=== PATIENT | male | born 1970 | race Caucasian/White ===

== ENCOUNTER 2019-12-18 19:01 | Emergency (ER) | payer SELFPAY ==
[2019-12-18 19:32] LABS: Basophils % 0.4 %; Eosinophils # 0.2 10^3/uL (0.0-0.8); Eosinophils % 1.5 %; Hemoglobin 14.5 g/dL (11.7-16.6); Lymphocytes # 2.6 10^3/uL (0.8-4.8); Lymphocytes % 24.5 %; Mean Corpuscular HGB Conc 32.2 g/dL (30.0-36.0); Mean Corpuscular Hemoglobin 27.3 pg (28.0-34.0); Mean Corpuscular Volume 84.6 fL (80-94); Mean Platelet Volume 11.3 fL (7.4-10.4); Monocytes % 9.4 %; Neutrophils # 6.7 10^3/uL (1.8-7.7); Neutrophils % 63.8 %; Nucleated Red Blood Cells % 0 %; Platelet Count 241 10^3/cmm (130-400); Red Blood Count 5.32 10^6/uL (4.1-5.3); Red Cell Distribution Width 13.1 % (12.1-15.1); White Blood Count 10.5 10^3/uL (4.0-10.0)
[2019-12-18 19:45] VITALS: BP 144/82; PULSE 72; RESP 18; TEMP 37; O2SAT 94; BMI 36.8
[2019-12-18 19:47] LABS: Alanine Aminotransferase 46 U/L (0-41); Albumin Level 4.2 g/dL (3.5-5.2); Alkaline Phosphatase 77 IU/L (40-130); Anion Gap 16.7 (5-19); Aspartate Amino Transferase 34 U/L (0-40); Blood Urea Nitrogen 17 mg/dL (6-20); Calcium 10.1 mg/dL (8.5-10.5); Carbon Dioxide 25 mmol/L (22-29); Chloride 98 mmol/L (98-107); Globulin 3.4 g/dL (1.3-4.6); Glucose 142 mg/dL (65-115); Lipase 35 U/L (13-60); Potassium 3.7 mmol/L (3.5-5.1); Sodium 136 mmol/L (136-145); Total Bilirubin 0.6 mg/dL (0.15-1.2); Total Protein 7.6 g/dL (6.6-8.7)
--- NOTE | 2019-12-18 20:08 | ED_ITS ---
Entered by Tiffany Nesbitt, acting as scribe for Jo-Ann Patel MD Dec 18, 2019 19:01 HPI - Abdominal Pain General: Chief Complaint: Abdominal Pain Stated Complaint: ABD PAIN Time Seen by Provider: 12/18/19 20:01 Source: patient and family Mode of arrival: ambulatory History of Present Illness: HPI narrative: 49 y/o male presents to the ED with complaint of abd pain. Pt states he has pain in the RUQ and nausea. He has noticed increased abd distension. Pt denies any prior abd sx. MD elicited complaint: abdominal pain Pain Consistency: constant Location: RUQ Exacerbating factors: eating and movement Associated Symptoms: Reports bloating and nausea; Denies chills, diarrhea, dysuria, fever(s) and vomiting Review of Systems Const: Denies: fever, chills or body aches Eyes: Denies: blurry vision or eye discomfort ENMT: Denies: throat pain or dental pain Card: Denies: chest pain Resp: Denies: shortness of breath GI: Reports: abdominal pain, nausea and bloating; Denies: vomiting or diarrhea : Denies: painful urination Musc: Denies: neck pain or back pain Skin/Breast: Denies: rash Neuro: Denies: headache Psych: Denies: depression Shashank/Lymph: Denies: easy bruising All/Imm: Denies: hives PFSH ED PFSH: Statuses (acute, chronic, etc) shown below reflect problem list status as previously entered and may not be historically accurate Social History Smoking and tobacco status: never smoked Physical Exam 2 Const: COMMON NORMALS: no apparent distress and oriented x3 GENERAL APPEARANCE: cooperative NUTRITIONAL APPEARANCE: obese HENMT: COMMON NORMALS: normocephalic and head/scalp atraumatic HEAD & SCALP: normocephalic and atraumatic Eye: COMMON NORMALS: PERRL and EOMs intact bilaterally PUPIL: Yes PERRL Neck/C-Spine: COMMON NORMALS: full ROM and supple Chest: COMMONS NORMALS: inspection of chest normal and palpation of chest normal Resp: COMMON NORMALS: normal respiratory effort, no retractions, no use of accessory muscles and clear to auscultation bilaterally AUSCULTATION: clear to auscultation bilaterally Cardio: COMMON NORMALS: regular rate, regular rhythm and no murmurs RATE: regular rate RHYTHM: regular rhythm GI: COMMON NORMALS: no masses PALPATION: Yes tender Details: RUQ Extremity: COMMON NORMALS: normal to inspection and full ROM Neuro: COMMON NORMALS: oriented x3, moves all extremities and no focal motor deficits Psych: COMMON NORMALS: mental status grossly normal, thought process normal and cooperative THOUGHT PROCESS: normal thought process Skin: COMMON NORMALS: no rashes or lesions noted and no wounds GENERAL SKIN EXAM: no rashes or lesions noted Course Vital Signs: Vital signs: Vital Signs Temperature 98.6 F 12/18/19 19:45 Pulse Rate 65 12/18/19 21:54 Respiratory Rate 16 12/18/19 21:54 Blood Pressure 117/56 12/18/19 21:54 Pulse Oximetry 94 12/18/19 21:54 MDM - Abdominal Pain MDM Narrative: Medical decision making narrative: Patient presents here with abdominal pain. Patient's ultrasound here shows no signs of cholecystitis or gallstones. Patient's lab work is normal as well. Will straight patient on omeprazole and she is to follow-up with a surgeon as soon as possible. Patient is to return if worsening. Lab Data: Labs: Lab Results 12/18/19 12/18/19 Range/Units 19:22 19:22 WBC 10.5 H (4.0-10.0) 10^3/ uL RBC 5.32 H (4.1-5.3) 10^6/u L Hgb 14.5 (11.7-16.6) g/dL Hct 45.0 (42.0-52.0) % MCV 84.6 (80-94) fL MCH 27.3 L (28.0-34.0) pg MCHC 32.2 (30.0-36.0) g/dL RDW 13.1 (12.1-15.1) % Plt Count 241 (130-400) 10^3/c mm MPV 11.3 H (7.4-10.4) fL Neut % (Auto) 63.8 % Lymph % (Auto) 24.5 % Coos % (Auto) 9.4 % Eos % (Auto) 1.5 % Baso % (Auto) 0.4 % Neut # (Auto) 6.7 (1.8-7.7) 10^3/u L Lymph # (Auto) 2.6 (0.8-4.8) 10^3/u L Coos # (Auto) 1.0 H (0.2-0.9) 10^3/u L Eos # (Auto) 0.2 (0.0-0.8) 10^3/u L Baso # (Auto) 0.0 (0.0-0.1) 10^3/u L Nucleated RBC % (a uto) 0 % Nucleated RBCs # 0.0 /100WBC Sodium 136 (136-145) mmol/L Potassium 3.7 (3.5-5.1) mmol/L Chloride 98 (98-107) mmol/L Carbon Dioxide 25 (22-29) mmol/L Anion Gap 16.7 (5-19) BUN 17 (6-20) mg/dL Creatinine 0.9 (0.7-1.2) mg/dL GFR Calculation 89.0 L (90-130) mL/min Glucose 142 H (65-115) mg/dL Calcium 10.1 (8.5-10.5) mg/dL Total Bilirubin 0.6 (0.15-1.2) mg/dL AST 34 (0-40) U/L ALT 46 H (0-41) U/L Alkaline Phosphata se 77 (40-130) IU/L Total Protein 7.6 (6.6-8.7) g/dL Albumin 4.2 (3.5-5.2) g/dL Globulin 3.4 (1.3-4.6) g/dL Lipase 35 (13-60) U/L Imaging Data ^: US: My impression: no acute abnormality Discharge Plan Discharge Patient Disposition: Home, Self-Care Clinical Impression: Abdominal pain Qualifiers: Abdominal location: right upper quadrant Qualified Code(s): R10.11 - Right upper quadrant pain Condition: Stable Prescriptions: New Prilosec OTC 20 mg tablet,delayed release (DR/EC) 20 mg PO DAILY 42 Days RF: 0 No Action Tenormin 100 mg tablet 100 mg PO DAILY RF: 0 Glucotrol 10 mg tablet 10 mg PO BID RF: 0 Glucophage 1,000 mg tablet 1,000 mg PO BID RF: 0 captopril 50 mg tablet 50 mg PO DAILY RF: 0 terazosin 10 mg capsule 10 mg PO DAILY RF: 0 Discharge Orders: Discharge Order (Routine); Ordered 12/18/19 Ordered By: Jo-Ann Patel Referrals: Santos Ochoa MD [Physician] - 4-7 days Discharge Diet: Advance as tolerated Discharge Activity: Resume usual activity Patient Instructions: Abdominal Pain (ED) Discharge Date/Time: 12/18/19 21:55 Coding Level of Care Code ED [employer] Manager for Chg Fwd Exam Problem Focused The documentation recorded by the Laz carrera Ashley, accurately reflects the service I personally performed and the decisions made by Amanda baum Korby, MD Dec 18, 2019 19:01
--- NOTE | 2019-12-18 20:10 | US_ITS ---
WS: [id number] RIGHT UPPER QUADRANT ULTRASOUND HISTORY: abd pain COMPARISON: None available. Liver: 15.3 cm in length. Poor visualization of the liver due to hepatic steatosis. Portal veins are poorly visualized. No mass is identified. No bile duct dilatation. Gallbladder: Normally distended gallbladder with no stones or wall thickening. CBD: 6.0 mm Pancreas: Not visualized. Completely obscured by bowel gas. Right kidney: 12.6 cm in length. Normal echogenicity with no mass or hydronephrosis. Aorta and IVC: Not visualized. No ascites. US/US gall bladder [id number] IMPRESSION: 1. Limited evaluation of the RIGHT upper quadrant. 2. Normal gallbladder. 3. Hepatic steatosis. Limited visualization of the liver.
[2019-12-18] MEDS: morphine 4 mg/mL SDV 1 mL IVP ×2 (20:17→21:50)
[2019-12-18] MEDS: ondansetron 2 mg/ML SDV 2 mL 4 MG IVP (20:18)
[2019-12-18 20:19] VITALS: BP 147/78; PULSE 80; RESP 18; O2SAT 94
--- NOTE | 2019-12-18 20:21 | PC.NURSE ---
Addendum entered by Cedric Bourgeois 12/18/19 20:25: Pt states that pain is worse after eating. Original Note: Introduced self to patient and initiated vital signs. Pt is A&O x 4 and agreeable. Pt states that the reason for the ER visit today is due to abdominal pain which presented approximately 2 days ago but has progressed. Pt states that pain is increased when taking a deep breath and is on the lower right quadrant of abdomen. Reassured patient of needs and will continue to monitor. Awaiting provider at bedside.
--- NOTE | 2019-12-18 21:22 | PC.NURSE ---
Ultrasound in room.
[2019-12-18 21:50] VITALS: RESP 16; O2SAT 94
[2019-12-18 21:54] VITALS: BP 117/56; PULSE 65; RESP 16; O2SAT 94
--- NOTE | 2019-12-23 14:43 | DCPLANNER ---
therapy manager had message to schedule a follow up appointment for patient with Dr. Ochoa. therapy manager called patient to speak -with patient about follow up appointment. therapy manager called [phone] unable to speak with patient or leave a voicemail, phone is no longer in service.
== END 2019-12-18 21:55 | disposition home or self-care (01) ==
PROVIDERS: Emergency Provider Emergency Medicine
DX: R10.11 Right upper quadrant pain (principal); Z79.84 Long term (current) use of oral hypoglycemic drugs
CPT/HCPCS: 36415; 76705; 80053; 83690; 85025; 96374; 96375; 96376; 99282; J2270; J2405

== ENCOUNTER → 2023-09-12 15:21 | Outpatient (BNVA) | payer OTHER, SELFPAY | PROVIDERS: Visit Provider Podiatrist Foot & Ankle Surgery | DX: M77.42 Metatarsalgia, left foot; M19.072 Primary osteoarthritis, left ankle and foot | CPT/HCPCS: 73630 ==

== ENCOUNTER 2024-10-29 07:29 | Emergency (ER) | payer OTHER, SELFPAY ==
[2024-10-29 07:30] VITALS: BP 141/84; PULSE 83; RESP 22; TEMP 36.7; O2SAT 95
--- NOTE | 2024-10-29 07:36 | XR_ITS ---
WS: [id number] Left hip, 3 views, 10/29/2024 Clinical Data: Trauma Comparison: None. Findings: No fractures or dislocations are seen. The hip joint is intact. There is a soft tissue calcification adjacent to the left inferior ischial pubic ramus which may be from a prior injury. The adjacent pelv is is normal. XR/XR hip LT 2-3V wo/w pel* [id number] Impression: Negative left hip. Tonnis classification: grade 0: normal radiographs
[2024-10-29 07:37] VITALS: BP 141/84; PULSE 84; O2SAT 96
--- NOTE | 2024-10-29 07:39 | ED_ITS ---
HPI - Extremity Problem General: Chief complaint: Extremity Injury, Lower Stated complaint: Fall, LT Leg pain Time Seen by Provider: 10/29/24 07:35 History of Present Illness: 54-year-old male presents to the emergen cy room with left hip pain. Patient was at work he slipped on a floor describes having done kind of split. He is complaining of right hip pain and discomfort but he can spontaneously move the right hip. He was not able to stand afterwards he is brought in by ambulance. Did not strike his head did not lose consciousness. No previous injury to that hip. He has had previous left knee surgery. Associated symptoms: Deny chest pain, fever(s) or rash Related Data Home Medications Medication Instructions Recorded Confirmed atenolol 100 mg tablet (Tenormin) 100 mg PO DAILY 12/18/19 10/29/24 captopril 50 mg tablet 50 mg PO DAILY 12/18/19 10/29/24 terazosin 10 mg capsule 10 mg PO DAILY 12/18/19 10/29/24 aspirin 81 mg tablet,delayed 81 mg PO BID 10/29/24 10/29/24 release (Edgar Low Dose Aspirin) glipizide 10 mg tablet, extended 10 mg PO QAM 10/29/24 10/29/24 release 24 hr metformin 1,000 mg tablet 1,000 mg PO BIDWM 10/29/24 10/29/24 omeprazole 20 mg capsule,delayed 20 mg PO DAILY 10/29/24 10/29/24 release semaglutide 2 mg/dose (8 mg/3 mL) See Rx Instructions .Route .COMPLEX 10/29/24 10/29/24 subcutaneous pen injector (Ozempic) Previous Rx's Medication Instructions Recorded custom orthotics L3020 #1 ea 09/12/23 diclofenac sodium 75 mg 75 mg PO Q12H PRN pain #20 tabs 10/29/24 tablet,delayed release methylprednisolone 4 mg tablets in See Rx Instructions PO .COMPLEX 10/29/24 a dose pack (Medrol (Gorge)) #21 ea tizanidine 4 mg tablet 4 mg PO Q6H PRN muscle spasticity 10/29/24 #20 tabs Allergies Allergy/AdvReac Type Severity Reaction Status Date / Time No Known Allergies Allergy Verified 09/12/23 15:08 Review of Systems Const: Denies: fever(s) or chills Card: Denies: chest pain Resp: Denies: dyspnea GI: Denies: abdominal pain : Denies: dysuria, urinary frequency or urinary urgency Musc: Reports: joint pain; Denies: neck pain or back pain Skin/Breast: Denies: rash PFSH ED PFSH: Medical History Essential hypertension Diabetes Family History Other Cancer Diabetes Hypertension Social History Smoking and tobacco/nicotine status: former use of tobacco/nicotine Physical Exam Const: GENERAL APPEARANCE: cooperative ORIENTATION/CONSCIOUSNESS: Yes awake, Yes oriented to person, Yes oriented to place and Yes oriented to time HENMT: COMMON NORMALS: normocephalic, atraumatic and hearing grossly normal bilaterally HEAD & SCALP: normocephalic and atraumatic Resp: COMMON NORMALS: normal respiratory effort, No retractions, No use of accessory muscles and clear to auscultation bilaterally AUSCULTATION: clear to auscultation bilaterally Cardio: COMMON NORMALS: regular rate, regular rhythm and No murmurs present (Cardio) RATE: regular rate RHYTHM: regular rhythm GI: COMMON NORMALS: Soft to palpation and No hepatosplenomegaly present AUSCULTATION: Yes normoactive bowel sounds PALPATION: Yes Soft to palpation, No Tenderness to palpation present (GI), No Guarding due to palpation present (GI) and Yes No hepatosplenomegaly present Extremity: COMMON NORMALS: normal to inspection, capillary refill normal, no clubbing, cyanosis or edema, no calf tenderness and no pedal edema Neuro: SENSORIUM/ORIENTATION: Yes oriented to person, Yes oriented to place and Yes oriented to time Skin: COMMON NORMALS: no rashes or lesions noted GENERAL SKIN EXAM: no rashes or lesions noted Course Vital Signs: Vital signs: Vital Signs Temperature 98.1 F 10/29/24 07:30 Pulse Rate 73 10/29/24 10:37 Respiratory Rate 22 H 10/29/24 07:30 Blood Pressure 141/84 10/29/24 10:37 Pulse Oximetry 93 10/29/24 10:37 Oxygen Delivery Me thod Room Air 10/29/24 07:30 MDM - Extremity (Nontraumatic) Medical Decision Making No fractures on x-ray patient able to ambulate he is somewhat sore. Suspect this mostly soft tissue. Will discharge patient home steroid taper and tizanidine diclofenac and follow-up with primary care if not improving Lab Data Radiology Impressions Hip/Pelvis X-Ray 10/29/24 07:36 Impression: Negative left hip. Tonnis classification: grade 0: normal radiographs All radiology interpretation(s) finalized by discharge Discharge Plan Discharge Patient Disposition: Home Clinical Impression: Fall, Acute pain of left hip Condition: Stable Prescriptions: New tizanidine 4 mg tablet 4 mg PO Q6H PRN (Reason: muscle spasticity) Qty: 20 0RF Rx Instructions: do not exceed 3 doses per 24 hrs diclofenac sodium 75 mg tablet,delayed release (DR/EC) 75 mg PO Q12H PRN (Reason: pain) Qty: 20 0RF methylprednisolone [Medrol (Gorge)] 4 mg tablets,dose pack See Rx Instructions .ROUTE .COMPLEX Qty: 21 0RF Rx Instructions: orally per package directions No Action (DME) custom orthotics L3020 See Rx Instructions .Route .MEDSUPPLY Qty: 1 0RF Rx Instructions: As directed to the Josselyn Arcelia atenolol [Tenormin] 100 mg tablet 100 mg PO DAILY captopril 50 mg tablet 50 mg PO DAILY terazosin 10 mg capsule 10 mg PO DAILY glipizide 10 mg tablet extended release 24hr 10 mg PO QAM aspirin [Edgar Low Dose Aspirin] 81 mg Tablet,Delayed Release (Dr/Ec) 81 mg PO BID metformin 1,000 mg tablet 1,000 mg PO BIDWM omeprazole 20 mg capsule,delayed release(DR/EC) 20 mg PO DAILY Ozempic 2 mg/dose (8 mg/3 mL) pen injector See Rx Instructions .ROUTE .COMPLEX Rx Instructions: INJECT 2 MG BY SUBCUTANEOUS INJECTION EVERY 7 DAYS. DOSE INCREASE. REPLACES PRIOR RX Discharge Orders: Discharge ED (Routine); Ordered 10/29/24 Ordered By: Ubaldo Patel Discharge Diet: Usual diet Discharge Activity: Resume usual activity Patient Instructions: Opioid Safety, Pain Management Activity Restrictions/Additional Instructions: Thank you for choosing [facility] for your healthcare needs today. It is very important that you follow up as instructed or that you return to the Emergency Department should you have concerns or if your condition changes or worsens in any way. You are seen emergency room after a fall. X-ray does not show any acute fractures you will ambulate well. Will discharge home with prednisone taper diclofenac as an anti-inflammatory and tizanidine. Take the prednisone as prescribed use the diclofenac and tizanidine as needed. Recheck with your primary care doctor if not improving. He will likely be very sore over the next couple of days. Coding Level of Care Code ED [employer] for Nuris Kraft
[2024-10-29] MEDS: orphenadrine 30 mg/mL Inj 2 mL 60 MG IVP (07:46)
[2024-10-29] MEDS: ketorolac 30 mg/mL INJ IVP (07:46)
[2024-10-29 10:37] VITALS: BP 141/84; PULSE 73; O2SAT 93
== END 2024-10-29 10:38 | disposition home or self-care (01) ==
PROVIDERS: Emergency Provider Family Medicine
DX: M25.552 Pain in left hip (principal); Z79.82 Long term (current) use of aspirin; Z79.84 Long term (current) use of oral hypoglycemic drugs; Z87.891 Personal history of nicotine dependence; I10 Essential (primary) hypertension; E11.9 Type 2 diabetes mellitus without complications; W01.0XXA Fall on same level from slipping, tripping and stumbling without subsequent striking against object, initial encounter
CPT/HCPCS: 73502; 96374; 96375; 99284; J1885; J2360

== ENCOUNTER 2025-05-23 08:11 | Emergency (ER) | payer BC, SELFPAY ==
--- OUTSIDE RECORDS SUMMARY | 2025-05-23 08:19 | XMS_ITS | Clinical Summary ---
Author Organization [facility] Address [address] [place] [address] Care Team Providers Care Green Jobs Trainer Name Role Phone Celestino Alas MD Primary Care Provider [phone] [phone] Allergies No known active allergies Medications furosemide (LASIX) 20 mg Oral tablet Take 10 mg by mouth 1 time daily as needed . Active fluticasone (FLONASE) 50 mcg/spray [place], Suspension Administer 2 Sprays in each nostril daily. Active albuterol HFA 90 mcg inhaler Take 2 Puffs by inhalation every 6 hours as needed for Shortness of Breath. 6.7 Gram 2 8 Active glipiZIDE (GLUCOTROL) 10 mg tablet Take 2 Tablets (20 mg) by mouth 2 times daily with meals. 360 Tablet 4 1 Active pioglitazone (Actos) 15 mg tablet Take 1 Tablet (15 mg) by mouth daily with breakfast. 90 Tablet 4 1 Active aspirin (ECOTRIN EC) 81 mg Tablet, Delayed Release (E.C.) Take 81 mg by mouth daily. 0 Active tiZANidine (ZANAFLEX) 2 mg TabletIndicatio ns:Myalgia Take 1 Tablet (2 mg) by mouth nightly as needed for Spasm. 30 Tablet 2 1 Active terazosin (HYTRIN) 10 mg capsule Take 1 capsule by mouth once daily 90 Capsule 1 Active metFORMIN (GLUCOPHAGE) 1,000 mg tablet TAKE 1 TABLET BY MOUTH TWICE DAILY WITH MEALS 180 Tablet 1 Active captopriL (CAPOTEN) 50 mg tablet Take 1 tablet by mouth once daily 90 Tablet 1 Active atenoloL (TENORMIN) 100 mg tablet Take 1 tablet by mouth once daily 90 Tablet 1 Active Active Problems Problem Noted Date Diagnosed Date Type 2 diabetes mellitus wit h hyperglycemia, without long-term current use of insulin 11/25/2016 Benign hypertension 11/25/2016 Benign prostatic hyperplasia with lower urinary tract symptoms 11/25/2016 OMAR on CPAP 11/25/2016 Allergic rhinitis 11/25/2016 Severe obesity (BMI 35.0-39.9) with comorbidity 11/25/2016 Immunizations Immunization Administration Dates Next Due (PNEUMOVAX 23)(50 YRS UP) PN EUMOCOCCAL POLYSACCHARIDE (PPV23) 0.5 ML, IM 02/24/2017 Family History Medical History Relation Name Comments Diabetes Father Hypertension Father Cancer Maternal Grandfather Hypertension Maternal Grandmother Diabetes Mother Heart Disease Mother Hypertension Mother Cancer Paternal Grandfather Diabetes Paternal Grandmother Breast Cancer Neg Hx Colon Cancer Neg Hx Relation Name Status Comments Father Alive Maternal Grandfather Maternal Grandmother Mother Alive Paternal Grandfather Paternal Grandmother Social History Tobacco Use Types Packs/Day Years Used Date Smoking Tobacco: Former Cigarettes Q uit: 11/13/1986 Alcohol Use Standard Drinks/Week Comments No 0 (1 standard drink = 0.6 oz pur e alcohol) Sex and Gender Information Value Date Recorded Sex Assigned at Not on file Legal Sex 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 Gender Identity Not on file Sexual Orientation Not on file Last Filed Vital Signs Vital Sign Reading Time Taken Comments Blood Pressure 138/86 01/15/2021 8:47 AM INVERFORM MACHINE OPERATOR Pulse 96 01/15/2021 8:47 AM INVERFORM MACHINE OPERATOR Temperature 36.6 C (97.8 F) 01/15/2021 8:47 AM INVERFORM MACHINE OPERATOR Respiratory Rate 16 01/15/2021 8:47 AM INVERFORM MACHINE OPERATOR Oxygen Saturation 96% 01/15/2021 8:47 AM INVERFORM MACHINE OPERATOR Inhaled Oxygen Concentration - - Weight 117 kg (258 lb) 01/15/2021 8:47 AM INVERFORM MACHINE OPERATOR Height 175.3 cm (5' 9 ) 01/15/2021 8:47 AM INVERFORM MACHINE OPERATOR Body Mass Index 38.1 01/15/2021 8:47 AM INVERFORM MACHINE OPERATOR Plan of Treatment Health Maintenance Due Date Last Done Comments DTAP/TDAP/TD VACCINES (1 - Tdap) 1987 HEPATITIS B VACCINES (1 of 3 - 19+ 3-dose series) 1987 COLORECTAL SCREENING 2013 Colorectal Cancer Screening 2013 FIT-DNA Q 3 years 2013 FIT/FOBT Q 1 year 2013 Flex Sig/CT Colonography Q 5 years 2013 ZOSTER VACCINE (1 of 2) 2018 DIABETES HBA1C Q 6 MONTHS 05/16/20212020, 11/25/2019, 03/18/2019, Additional history exists DIABETES MICROALBUMIN ANNUAL SCREEN 11/16/2021 11/16/2020, 06/14/2018, 02/27/2017 LDL CHOLESTEROL ANNUAL 11/16/2021 , 11/25/2019, 06/14/2018, Additional history exists DIABETES ANNUAL FOOT EXAM 01/15/20222020, 11/25/2019, 09/13/2018, Additional history exists DIABETES ANNUAL RETINAL EXAM 06/11/2025, 04/19/2022, 10/12/2020, Additional history exists INFLUENZA VACCINE (#1) 2025 , 11/16/2020, 11/25/2019, Additional history exists Procedures Procedure Name Priority Date/Time Associated Diagnosis Comments MICROALBUMIN/CREATI NINE RATIO, RANDOM UR Routine 11/16/2020 4:51 PM INVERFORM MACHINE OPERATOR Type 2 diabetes mellitus with hyperglycemia, without long-term current use of insulin ([facility]) LIPID PANEL Routine 11/16/2020 4:51 PM INVERFORM MACHINE OPERATOR Type 2 diabetes mellitus with hyperglycemia, without long-term current use of insulin (CMS/HCC) Benign hypertension Severe obesity (BMI 35.0-39.9) with comorbidity ([facility]) HEMOGLOBIN A1C Routine 11/16/2020 4:51 PM INVERFORM MACHINE OPERATOR Type 2 diabetes mellitus with hyperglycemia, without long-term current use of insulin ([facility]) Glucosuria HM DIABETES EYE EXAM Routine 10/12/2020 from Last 3 Months or Most Recently Relevant to Health Maintenance Results * MICROALBUMIN/CREATININE RATIO, RANDOM UR (11/16/2020 4:51 PM INVERFORM MACHINE OPERATOR) MICROALBUMIN, URINE 2.1 No Reference Range mg/dL 11/17/2020 9:52 PM INVERFORM MACHINE OPERATOR [facility] CREATININE, URINE 173.2 40.0 - 278.0 mg/dL 11/17/2020 9:52 PM [facility] Comment:Reference Range vari es with fluid intake and diet. MICROALBUMIN/C REAT RATIO, UR 12.1 <17.0 mg/g 11/17/2020 9:52 PM INVERFORM MACHINE OPERATOR [facility] Urine URINE SPECIMEN OBTAINED BY CLEAN CATCH PROCEDURE / Unknown Collection / Unknown 11/16/2020 4:51 PM INVERFORM MACHINE OPERATOR 11/17/2020 8:17 PM INVERFORM MACHINE OPERATOR [facility] - 11/17/2020 9:52 PM INVERFORM MACHINE OPERATOR Condition Microalbumin/Creat ratio Normal Males <17 Normal Females <25 Microalbuminuria Males 17-299 Microalbuminuria Females 25-299 Overt proteinuria >=300 Celestino Alas MD URINE ORDERABLES Final Re sult [facility] [id number] [address] [place] [address] * (ABNORMAL) HEMOGLOBIN A1C (11/16/2020 4:51 PM INVERFORM MACHINE OPERATOR) HEMOGLOBIN A1C 10.8(H) See Comment % 11/17/2020 8:44 PM [facility] EST. AVG GLUCOSE, A1C 263 mg/dL 11/17/2020 8:44 PM INVERFORM MACHINE OPERATOR [facility] Blood Collection / Unknown 11/16/2020 4:51 PM INVERFORM MACHINE OPERATOR 11/17/2020 8:14 PM INVERFORM MACHINE OPERATOR [facility] - 11/17/2020 8:44 PM INVERFORM MACHINE OPERATOR HGB A1C INTERPRETATION NORMAL: <5.7% PRE-DIABETES: 5.7 - 6.4% DIABETES: 6.5% OR GREATER Falsely low A1C measurements can occur when: 1. Anemia and/or hemolytic anemia is present. 2. Hemoglobin variants present. 3. Renal failure. 4. Transfusion of blood product in the last 120 days. We recommend ordering a fructosamine test([id number]) to more accurately assess glycemic status if any of the above conditions are present. Celestino Alas MD CHEMISTRY ORDERABLES Delmi sanjay Result [facility] CLIA# [id number] [address] [place] [address] * (ABNORMAL) LIPID PANEL (11/16/2020 4:51 PM INVERFORM MACHINE OPERATOR) CHOLESTEROL 193 <200 mg/dL 11/17/2020 9:40 PM [facility] TRIGLYCERIDE 178(H) <150 mg/dL 11/17/2020 9:40 PM [facility] HDL 45 40 - 59 mg/dL 11/17/2020 9:40 PM [facility] LDL CALCULATED 112(H) <100 mg/dL 11/17/2020 9:40 PM [facility] NON-HDL CHOLESTEROL 148(H) <130 mg/dL 11/17/2020 9:40 PM [facility] Blood Collection / Unknown 11/16/2020 4:51 PM INVERFORM MACHINE OPERATOR 11/17/2020 8:14 PM INVERFORM MACHINE OPERATOR [facility] - 11/17/2020 9:40 PM INVERFORM MACHINE OPERATOR TOTAL CHOLESTEROL mg/dL Desirable <200 Borderline high 200-239 High >=240 TRIGLYCERIDES mg/dL Normal <150 Borderline high 150-199 High 200-499 Very high >=500 HDL CHOLESTEROL mg/dL Low <40 Normal 40-59 Desirable >=60 NON HDL CHOLESTEROL mg/dL Optimal <130 Near Optimal 130-159 Borderline High 160-189 Very High >=190 CALCULATED LDL mg/dL LDL <70, OPTIMAL if have Atherosclerotic cardiovascular disease (ASCVD) or intermediate or higher (>7.5%) 10 year risk of ASCVD including most adults with diabetes. LDL <100, Optimal in adult patients with low (<7.5%) 10 year ASCVD risk LDL 100-160, Suboptimal LDL >160, High LDL >190, Very high ATPIII Guidelines Reference Ranges for Lipid Panels (NCEP/AMA) . Celestino Alas MD CHEMISTRY ORDERABLES Delmi grace Result [facility]# [id number] [address] [place] [address] * DIABETES EYE EXAM (10/12/2020) Abstract Spg Provider HEALTH MAINTENANCE Final R esult from Last 3 Months or Most Recently Relevant to Health Maintenance Insurance WORKERS COMP WORKERS COMP WORKERS COMP Care Teams Green Jobs Trainer Relationship Specialty Start Date End Date Celestino Alas MD [address] [facility] [place] [address] PCP - General Family Practice 11/30/16
--- OUTSIDE RECORDS SUMMARY | 2025-05-23 08:19 | XMS_ITS | Encounter Summary ---
Author Organization [facility] Address [address] [place] [address] Care Team Providers Care Vb Net Developer Name Role Phone Celestino Alas MD Primary Care Provider [phone] [phone] Encounter Details Date Type Department Care Team (Latest Contact Info) Description 11/15/2001 Outpatient Historical [facility] Celestino Hansen MD [address] [place] [address] HYPERTENSION NOS (Primary Dx) Social History Tobacco Use Types Packs/Day Years Used Date Smoking Tobacco: Never Assessed Sex and Gender Information Value Date Recorded Sex Assigned at Not on file 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 Gender Identity Not on file Sexual Orientation Not on file documented as of this encounter Plan of Treatment Not on file documented as of this encounter Visit Diagnoses Diagnosis Unspecified essential hypertension- Primary documented in this encounter Additional Health Concerns Infection Onset Date Last Indicated Resolved Time COVID-19 04/10/2020 04/10/2020 05/10/2020 8:09 PM CDT documented as of this encounter Care Teams Vb Net Developer Relationship Specialty Start Date End Date Celestino Alas MD [address] [place] [phone] PCP - General Family Practice 11/30/16 documented as of this encounter
--- OUTSIDE RECORDS SUMMARY | 2025-05-23 08:19 | XMS_ITS | Encounter Summary ---
Author Organization [facility] Address [address] [place] [address] Care Team Providers Care Patient Access Associate Name Role Phone Celestino Alas MD Primary Care Provider [phone] Encounter Details Date Type Department Care Team (Latest Contact Info) Description 08/07/2001 Outpatient Historical [facility] Horace Kerns Jr., MD [address] [place] [id number] Unspecified essential hypertension (Primary Dx); Heart disease, unspecified Social History Tobacco Use Types Packs/Day Years Used Date Smoking Tobacco: Never Assessed Sex and Gender Information Value Date Recorded Sex Assigned at Not on file 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 Gender Identity Not on file Sexual Orientation Not on file documented as of this encounter Plan of Treatment Not on file documented as of this encounter Visit Diagnoses Diagnosis Unspecified essential hypertension- Primary Heart disease, unspecified documented in this encounter Additional Health Concerns Infection Onset Date Last Indicated Resolved Time COVID-19 04/10/2020 04/10/2020 05/10/2020 8:09 PM CDT documented as of this encounter Care Teams Patient Access Associate Relationship Specialty Start Date End Date Celestino Alas MD [address] [facility] [address] [place] [address] PCP - General Family Practice 11/30/16 documented as of this encounter
--- OUTSIDE RECORDS SUMMARY | 2025-05-23 08:19 | XMS_ITS | Encounter Summary ---
Author Organization [facility] Address [address] [place] [address] Care Team Providers Care Global Human Resources Director Name Role Phone Celestino Alas MD Primary Care Provider [phone] [phone] Encounter Details Date Type Department Care Team (Late st Contact Info) Description 11/22/2000 Outpatient Historical [facility] Santos Ochoa MD [address] [id number] Swelling, mass, or lump in head and neck (Primary Dx) Social History Tobacco Use Types Packs/Day Years Used Date Smoking Tobacco: Never Assessed Sex and Gender Information Value Date Recorded Sex Assigned at Not on file Legal 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 Male 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 Gender Identity Not on file Sexual Orientation Not on file documented as of this encounter Plan of Treatment Not on file documented as of this encounter Visit Diagnoses Diagnosis Swelling, mass, or lump in head and neck- Primary documented in this encounter Additional Health Concerns Infection Onset Date Last Indicated Resolved Time COVID-19 04/10/2020 04/10/2020 05/10/2020 8:09 PM CDT documented as of this encounter Care Teams Global Human Resources Director Relationship Specialty Start Date End Date Celestino Alas MD [address] [facility] [address] [place] [phone] PCP - General Family Practice 11/30/16 documented as of this encounter
--- OUTSIDE RECORDS SUMMARY | 2025-05-23 08:19 | XMS_ITS | Encounter Summary ---
Author Organization [facility] Address [address] [place] [address] Care Team Providers Care Bench Hand Machine Name Role Phone Celestino Alas MD Primary Care Provider +1 [phone] Encounter Details Date Type Department Care Team (Latest Contact Info) Description 07/23/2001 Outpatient Historical [facility] Celestino Hansen MD [address] [place] [phone] Unspecified essential hypertension (Primary Dx) Social History Tobacco Use Types Packs/Day Years Used Date Smoking Tobacco: Never Assessed Sex and Gender Information Value Date Recorded Sex Assigned at Not on file 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 Gender Identity Not on file Sexual Orientation Not on file documented as of this encounter Plan of Treatment Not on file documented as of this encounter Visit Diagnoses Diagnosis Unspecified essential hypertension- Primary documented in this encounter Additional Health Concerns Infection Onset Date Last Indicated Resolved Time COVID-19 04/10/2020 04/10/2020 05/10/2020 8:09 PM CDT documented as of this encounter Care Teams Bench Hand Machine Relationship Specialty Start Date End Date Celestino Alas MD [address] [place] [address] PCP - General Family Practice 11/30/16 documented as of this encounter
--- OUTSIDE RECORDS SUMMARY | 2025-05-23 08:19 | XMS_ITS | Clinical Summary ---
Author Organization [facility] Address [address] Garcia: [place] [address] Care Team Providers Care Roll Clamp Operator Name Role Phone Celestino Alas MD Primary Care Provider [phone] Allergies No known active allergies Medications aspirin (ECOTRIN EC) 81 mg Tablet, Delayed Release (E.C.) Take 81 mg by mouth daily. 0 Active CPAP / BIPAP suppliesIndicati ons:OMAR on CPAP Length of need: 99 months Mask Type: nasal pillow with headgear every 6 months, mask only every 3 months, cushions per month. Tubing: heated 1 every 3 months, water chamber 1 every 6 months, chin strap 1 every 6 months, filters disposable 2 per month, filters reusable 1 per 6 months. 1 Each 2 Active terazosin (HYTRIN) 10 mg capsuleIndicatio ns:Benign prostatic hyperplasia with urinary frequency Take 1 Capsule (10 mg) by mouth daily. 100 Capsule 3 5 Active captopriL (CAPOTEN) 50 mg tabletIndication s:Benign hypertension,Typ e 2 diabetes mellitus with hyperglycemia, without long-term current use of insulin (CMS/HCC) Take 1 Tablet (50 mg) by mouth daily. 100 Tablet 3 5 Active omeprazole (PriLOSEC) 20 mg Capsule, Delayed Release(E.C.)Ind ications:Esophag eal dysphagia Take 1 Capsule (20 mg) by mouth daily. 90 Capsule 3 5 Active metFORMIN (GLUCOPHAGE) 1,000 mg tabletIndication s:Type 2 diabetes mellitus with hyperglycemia, without long-term current use of insulin ([facility]) Take 1 Tablet (1,000 mg) by mouth 2 times daily with meals. 200 Tablet 3 5 Active glipiZIDE (GLUCOTROL XL) 10 mg Extended Release 24 hour tabletIndication s:Type 2 diabetes mellitus with hyperglycemia, without long-term current use of insulin ([facility]) Take 1 Tablet (10 mg) by mouth daily with breakfast. 100 Tablet 3 5 Active atenoloL (TENORMIN) 100 mg tabletIndication s:Benign hypertension Take 1 Tablet (100 mg) by mouth daily. 100 Tablet 3 5 Active insulin glargine (Lantus Solostar U-100 Insulin) 100 unit/mL pen syringeIndicatio ns:Type 2 diabetes mellitus with hyperglycemia, without long-term current use of insulin ([facility]) Inject 20 Units by subcutaneous injection daily with breakfast. 15 mL 3 5 Active semaglutide (Ozempic) 2 mg/dose (8 mg/3 mL) Pen InjectorIndicati ons:Type 2 diabetes mellitus with hyperglycemia, without long-term current use of insulin ([facility]) INJECT 2 MG BY SUBCUTANEOUS INJECTION EVERY 7 DAYS. DOSE INCREASE. REPLACES PRIOR RX 3 mL 2 5 Active fluticasone propionate (FLONASE) 50 mcg/spray [place], Suspension nasal inhalerIndicatio ns:Middle ear effusion, bilateral Administer 2 Sprays in each nostril daily. 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 Benign hypertension 11/25/2016 Type 2 diabetes mellitus wit h hyperglycemia, without long-term current use of insulin 11/25/2016 OMAR on CPAP 11/25/2016 Benign prostatic hyperplasia with lower urinary tract symptoms 11/25/2016 Allergic rhinitis 11/25/2016 Severe obesity (BMI 35.0-39.9) with comorbidity 11/25/2016 Encounters Date Type Department Care Team Description 04/30/2025 External Device Data STL ABSTRACTION Provider, Abstract 04/10/2025 Results Follow-Up [facility] [place] [address] [place] [address] Radha Tejeda FNP PSA, LIPID PANEL, CBC WITH DIFFERENTIAL, Additional followed-up results: 2 04/10/2025 Medication Prior Auth Encounter [address] [address] Celestino Alas MD 04/08/2025 4:00 PM CDT Office Visit [address] [address] Radha Tejeda FNP Type 2 diabetes mellitus with hyperglycemia, without long-term current use of insulin (CMS/HCC) (Primary Dx); Benign hypertension; Benign prostatic hyperplasia with urinary frequency; OMAR on CPAP; Middle ear effusion, bilateral; Vertigo 04/08/2025 External Device Data STL ABSTRACTION Provider, Abstract 03/23/[address] [phone] Celestino Alas MD Type 2 diabetes mellitus with hyperglycemia, without long-term current use of insulin (CMS/HCC) from Last 3 Months Immunizations Immunization Administration Dates Next Due (PNEUMOVAX [...] Smoking Tobacco: Former Cigarettes Q uit: 11/13/1986 Smokeless Tobacco: Never Tobacco Cessation:Counseling Given: No Alcohol Use Standard Drinks/Week Comments No 0 (1 standard drink = 0.6 oz pur e alcohol) Sex and Gender Information Value Date Recorded Sex Assigned at Male 06/21/2023 2:10 PM CDT Legal Sex Male 1:25 AM ENGINEERING MANAGER Gender Identity Male 06/21/2023 2:10 PM CDT Sexual Orientation Straight 06/21/2023 2: 10 PM CDT Last Filed Vital Signs Vital Sign Reading Time Taken Comments Blood Pressure 136/80 04/08/2025 3:49 PM CDT Pulse 81 04/08/2025 3:49 PM CDT Temperature 36.5 C (97.7 F) 04/08/2025 3:49 PM CDT Respiratory Rate 18 04/08/2025 3:49 PM CDT Oxygen Saturation 98% 04/08/2025 3:49 PM CDT Inhaled Oxygen Concentration - - Weight 110.8 kg (244 lb 4 oz) 04/08/2025 3:49 PM CDT Height 170.2 cm (5' 7 ) 04/08/2025 3:49 PM CDT Body Mass Index 38.25 04/08/2025 3:49 PM CDT Plan of Treatment Upcoming Encounters Date Type Department Care Team (Late st Contact Info) Description 2025 4:20 PM CDT Office Visit [address] [address] Celestino Alas MD [address] [address] Health Maintenance Due Date Last Done Comments DTAP/TDAP/TD VACCINES (1 - Tdap) 1987 HEPATITIS B VACCINES (1 of 3 - 19+ 3-dose series) 1987 COLORECTAL SCREENING 2013 FIT/FOBT Q 1 year 2013 Flex Sig/CT Colonography Q 5 years 2013 ZOSTER VACCINE (1 of 2) 2018 DIABETES ANNUAL FOOT EXAM 02/14/20232021, 01/15/2021, 11/25/2019, Additional history exists Preventative Visit- Commercial 11/13/2024 02/24/2017 DIABETES ANNUAL RETINAL EXAM 06/11/2025, 04/19/2022, 11/15/2021, Additional history exists INFLUENZA VACCINE (#1) 2025 , 09/10/2024, 09/04/2023, Additional history exists DIABETES HBA1C Q 6 MONTHS 10/09/20252024, 12/12/2024, 08/07/2024, Additional history exists DIABETES MICROALBUMIN ANNUAL SCREEN 12/12/2025 12/12/2024, 03/06/2024, 09/06/2023, Additional history exists DIABETES: A1C (Auto Order) 04/08/202604/08, 12/12/2024, 08/07/2024, Additional history exists LDL CHOLESTEROL ANNUAL 04/08/2026 , 12/12/2024, 03/05/2024, Additional history exists Colorectal Cancer Screening 12/31/2027 FIT-DNA Q 3 years 12/31/2027 12/31/2024, 02/24/2022 Procedures Procedure Name Priority Date/Time Associated Diagnosis Comments HEMOGLOBIN A1C Routine 04/08/2025 4:03 PM CDT Type 2 diabetes mellitus with hyperglycemia, without long-term current use of insulin (CMS/HCC) COMPREHENSIVE METABOLIC PANEL Routine 04/08/2025 4:03 PM CDT Type 2 diabetes mellitus with hyperglycemia, without long-term current use of insulin (CMS/HCC) CBC WITH DIFFERENTIAL Routine 04/08/2025 4:03 PM CDT Benign hypertension LIPID PANEL Routine 04/08/2025 4:03 PM CDT Type 2 diabetes mellitus with hyperglycemia, without long-term current use of insulin (CMS/HCC) Benign hypertension PSA Routine 04/08/2025 4:03 PM CDT Benign prostatic hyperplasia with urinary frequency COLON CANCER SCREEN, STOOL DNA Routine 12/31/2024 12:40 AM ENGINEERING MANAGER Screening for colon cancer MICROALBUMIN/CREATINI NE RATIO, RANDOM UR Routine 12/12/2024 5:55 PM ENGINEERING MANAGER Type 2 diabetes mellitus with hyperglycemia, without long-term current use of insulin (CMS/HCC) HM DIABETES EYE EXAM Routine 06/11/2024 9:12 AM CDT from Last 3 Months or Most Recently Relevant to Health Maintenance Results * (ABNORMAL) CBC WITH DIFFERENTIAL (04/08/2025 4:03 PM CDT) [facility] WBC 10.2 3.8 - 10.8 Thousand/u L [facility] RBC 5.47 4.20 - 5.80 Million/uL [facility] HEMOGLOBIN 15.3 13.2 - 17.1 g/dL [facility] HEMATOCRIT 49.5 38.5 - 50.0 % [facility] MCV 90.5 80.0 - 100.0 fL [facility] MCH 28.0 27.0 - 33.0 pg [facility] MCHC 30.9(L) 32.0 - 36.0 g/dL [facility] Comment: For adults, a slight decrease in the calculated MCHC value (in the range of 30 to 32 g/dL) is most likely not clinically significant; however, it should be interpreted with caution in correlation with other red cell parameters and the patient's clinical condition. RDW 13.5 11.0 - 15.0 % [facility] PLATELETS 264 140 - 400 Thousand/u L [facility] MPV 10.8 7.5 - 12.5 fL [facility] NEUTROPHIL ABSOLUTE 5,783 1,500 - 7,800 cells/uL [facility] LYMPHOCYTE ABSOLUTE 3,121 850 - 3,900 cells/uL [facility] MONOCYTE ABSOLUTE 898 200 - 950 cells/uL [facility] EOSINOPHIL ABSOLUTE 326 15 - 500 cells/uL [facility] BASOPHILS ABSOLUTE 71 0 - 200 cells/uL [facility] NEUTROPHIL 56.7 % [facility] LYMPHOCYTES 30.6 % [facility] MONOCYTE 8.8 % [facility] EOSINOPHILS 3.2 % [facility] BASOPHILS 0.7 % [facility] Comment: Test Performed at: [facility] [address] [place] [phone] Sol Cooley MD Blood 04/08/2025 4:03 PM CDT 04/10/2025 3:52 AM CDT Radha Beverley Tejeda [facility] HEMATOLOGY ORDERABLES Fi nal Result Performing Organization Address [facility] Co de Phone Number [facility] [phone] [facility] [address] [place] [address] * PSA (04/08/2025 4:03 PM CDT) PSA 0.56 < OR = 4.00 ng/mL [facility] Comment: The total PSA value from this assay system is standardized against the WHO standard. The test result will be approximately 20% lower when compared to the equimolar-standardized total PSA (Rangel Phan). Comparison of serial PSA results should be interpreted with this fact in mind. This test was performed using the Siemens chemiluminescent method. Values obtained from different assay methods cannot be used interchangeably. PSA levels, regardless of value, should not be interpreted as absolute evidence of the presence or absence of disease. Test Performed at: [facility] [address] [place] [phone] Sol Cooley MD Blood 04/08/2025 4:03 PM CDT 04/10/2025 3:52 AM CDT Radha Tejeda [facility] CHEMISTRY ORDERABLES Fin al Result Performing Organization Address [facility] de Phone Number [facility] [phone] [facility] [address] [place] [address] * (ABNORMAL) HEMOGLOBIN A1C (04/08/2025 4:03 PM CDT) HEMOGLOBIN A1C 7.5(H) <5.7 % [facility] Comment: For someone without known diabetes, a hemoglobin A1c value of 6.5% or greater indicates that they may have diabetes and this should be confirmed with a follow-up test. For someone with known diabetes, a value <7% indicates that their diabetes is well controlled and a value greater than or equal to 7% indicates suboptimal control. A1c targets should be individualized based on duration of diabetes, age, comorbid conditions, and other considerations. Currently, no consensus exists regarding use of hemoglobin A1c for diagnosis of diabetes for children. ESTIMATED AVERAGE GLUCOSE (MG/DL) 169 mg/dL [facility] ESTIMATED AVERAGE GLUCOSE (MMOL/L) 9.3 mmol/L [facility] Comment: Test Performed at: [facility] [address] [facility] [place] [address] Sol Cooley MD Blood 04/08/2025 4:03 PM CDT 04/10/2025 3:52 AM CDT Radha Tejeda SLUSHER OPERATOR CHEMISTRY ORDERABLES Fin al Result [facility] [phone] [facility] [address] [place] [address] * (ABNORMAL) LIPID PANEL (04/08/2025 4:03 PM CDT) CHOLESTEROL 161 <200 mg/dL [facility] HDL 42 > OR = 40 mg/dL [facility] TRIGLYCERIDE 220(H) <150 mg/dL [facility] Comment: If a non-fasting specimen was collected, consider repeat triglyceride testing on a fasting specimen if clinically indicated. Eric et al. J. of Clin. Lipidol. 2015;9:129-169. LDL CALCULATED 87 mg/dL (calc) [facility] Comment: Reference range: <100 Desirable range <100 mg/dL for primary prevention; <70 mg/dL for patients with CHD or diabetic patients with > or = 2 CHD risk factors. LDL-C is now calculated using the Pan-You calculation, which is a validated novel method providing better accuracy than the Friedewald equation in the estimation of LDL-C. Pan HERNANDEZ et al. BRAIN. 2013;310(19): 2895-7150 (http://education.[employer]/faq/VNB818) CHOL/HDL RATIO 3.8 <5.0 (calc) [facility] NON-HDL CHOLESTEROL 119 <130 mg/dL (calc) [facility] Comment: For patients with diabetes plus 1 major ASCVD risk factor, treating to a non-HDL-C goal of <100 mg/dL (LDL-C of <70 mg/dL) is considered a therapeutic option. Test Performed at: [facility] [address] [facility] [place] [address] Sol Cooley MD Blood 04/08/2025 4:03 PM CDT 04/10/2025 3:52 AM CDT us Radha Tejeda SLUSHER OPERATOR CHEMISTRY ORDERABLES Fin al Result [facility] [phone] [facility] [address] [facility] [place] [address] * (ABNORMAL) COMPREHENSIVE METABOLIC PANEL (04/08/2025 4:03 PM CDT) GLUCOSE 139(H) 65 - 99 mg/dL [facility] Comment: Fasting reference interval For someone without known diabetes, a glucose value >125 mg/dL indicates that they may have diabetes and this should be confirmed with a follow-up test. BUN 24 7 - 25 mg/dL [facility] CREATININE 1.05 0.70 - 1.30 mg/dL [facility] GFR 83 > OR = 60 mL/min/1. 73m2 [facility] BUN/CREAT RATIO SEE NOTE: 6 - 22 (calc) [facility] Comment: Not Reported: BUN and Creatinine are within reference range. SODIUM 138 135 - 146 mmol/L [facility] POTASSIUM 3.9 3.5 - 5.3 mmol/L [facility] CHLORIDE 104 98 - 110 mmol/L [facility] CO2 25 20 - 32 mmol/L [facility] CALCIUM 9.4 8.6 - 10.3 mg/dL [facility] TOTAL PROTEIN 7.2 6.1 - 8.1 g/dL [facility] ALBUMIN 4.4 3.6 - 5.1 g/dL [facility] GLOBULIN 2.8 1.9 - 3.7 g/dL (calc) [facility] ALBUMIN/GLOBULIN RATIO 1.6 1.0 - 2.5 (calc) [facility] BILIRUBIN TOTAL 0.4 0.2 - 1.2 mg/dL [facility] ALKALINE PHOSPHATASE 89 35 - 144 U/L [facility] AST 25 10 - 35 U/L [facility] ALT 34 9 - 46 U/L [facility] Comment: Test Performed at: [facility] [address] [place] [address] Sol Cooley MD Blood 04/08/2025 4:03 PM CDT 04/10/2025 3:52 AM CDT Radha Tejeda SLUSHER OPERATOR CHEMISTRY ORDERABLES Fin al Result [facility] [phone] [facility] [address] [address] * COLON CANCER SCREEN, STOOL DNA (12/31/2024 12:40 AM ENGINEERING MANAGER) COLOGUARD RESULT Negative Negative [facility] Comment: NEGATIVE TEST RESULT. A negative Cologuard result indicates a low likelihood that a colorectal cancer (CRC) or advanced adenoma (adenomatous polyps with more advanced pre-malignant features) is present. The chance that a person with a negative Cologuard test has a colorectal cancer is less than 1 in 1500 (negative predictive value >99.9%) or has an advanced adenoma is less than 5.3% (negative predictive value 94.7%). These data are based on a prospective cross-sectional study of 10,000 individuals at average risk for colorectal cancer who were screened with both Cologuard and colonoscopy. (Francis Etienne al, N Engl J Med 2014;370(14):9482-7012) The normal value (reference range) for this assay is negative. COLOGUARD RE-SCREENING RECOMMENDATION: Periodic colorectal cancer screening is an important part of preventive healthcare for asymptomatic individuals at average risk for colorectal cancer. Following a negative Cologuard result, the [place] [employer] Society and U.S. Multi-Society Task Force screening guidelines recommend a Cologuard re-screening interval of 3 years. References: [place] [employer] Guideline for Colorectal Cancer Screening: https://www.cancer.org/cancer/dkdfq-lsrbni-agnekb/dsiwutscj-vjjbwmbov-sexrcvu/ac s-rec ommendations.html.; Myke DK, Remy LITTLE, Tashi CrespoK, Colorectal Cancer Screening: Recommendations for Physicians and Patients from the U.S. Multi-Society Task Force on Colorectal Cancer Screening , Am J Gastroenterology 2017; 112:4086-6122. TEST DESCRIPTION: Composite algorithmic analysis of stool DNA-biomarkers with hemoglobin immunoassay. Quantitative values of individual biomarkers are not reportable and are not associated with individual biomarker result reference ranges. Cologuard is intended for colorectal cancer screening of adults of either sex, 45 years or older, who are at average-risk for colorectal cancer (CRC). Cologuard has been approved for use by the U.S. FDA. The performance of Cologuard was established in a cross sectional study of average-risk adults aged 50-84. Cologuard performance in patients ages 45 to 49 years was estimated by sub-group analysis of near-age groups. Colonoscopies performed for a positive result may find as the most clinically significant lesion: colorectal cancer [4.0%], advanced adenoma (including sessile serrated polyps greater than or equal to 1cm diameter) [20%] or non- advanced adenoma [31%]; or no colorectal neoplasia [45%]. These estimates are derived from a prospective cross-sectional screening study of 10,000 individuals at average risk for colorectal cancer who were screened with both Cologuard and colonoscopy. (Francis Ricks et al, N Engl J Med 2014;370(14):8705-3733.) Cologuard may produce a false negative or false positive result (no colorectal cancer or precancerous polyp present at colonoscopy follow up). A negative Cologuard test result does not guarantee the absence of CRC or advanced adenoma (pre-cancer). The current Cologuard screening interval is every 3 years. ([place] [employer] and U.S. Multi-Society Task Force). Cologuard performance data in a 10,000 patient pivotal study using colonoscopy as the reference method can be accessed at the following location: www.[employer]/results. Additional description of the Cologuard test process, warnings and precautions can be found at www.cologuard.com. Stool STOOL SPECIMEN / Unknown 12/31/2024 12:40 AM ENGINEERING MANAGER 01/03/2025 5:25 PM ENGINEERING MANAGER Celestino Alas MD BODY FLUIDS AND STOOLS Fi nal Result Performing Organization Address [facility]/ZIP Co de Phone Number [employer] CLIA # [id number] [address] , [address] [place] [address] * MICROALBUMIN/CREATININE RATIO, RANDOM UR (12/12/2024 5:55 PM ENGINEERING MANAGER) Creatinine, Urine 158 20 - 320 mg/dL [facility] MICROALBUMIN, URINE 1.2 See Note: mg/dL [facility] Comment: Reference Range: Reference Range Not established MICROALBUMIN/CREAT RATIO, UR 8 <30 mg/g creat [facility] Comment: The ADA defines abnormalities in albumin excretion as follows: Albuminuria Category Result (mg/g creatinine) Normal to Mildly increased <30 Moderately increased 30-299 Severely increased > OR = 300 The ADA recommends that at least two of three specimens collected within a 3-6 month period be abnormal before considering a patient to be within a diagnostic category. Test Performed at: [facility] [address] [place] [address] Sol Cooley MD Urine URINE SPECIMEN OBTAINED BY CLEAN CATCH PROCEDURE / Unknown 12/12/2024 5:55 PM ENGINEERING MANAGER 12/14/2024 5:43 AM ENGINEERING MANAGER Celestino Alas MD URINE ORDERABLES Final Re sult Performing Organization Address [facility]/ZIP Co de Phone Number [facility] [phone] [facility] [address] [place] [address] * DIABETES EYE EXAM (06/11/2024 9:12 AM CDT) us Abstract Provider HEALTH MAINTENANCE Edited Resu lt - Final from Last 3 Months or Most Recently Relevant to Health Maintenance Insurance [employer] [id number] Care Teams Roll Clamp Operator Relationship Specialty Start Date End Date Celestino Alas MD [address] [place] [address] PCP - General Family Practice 11/30/16
--- OUTSIDE RECORDS SUMMARY | 2025-05-23 08:19 | XMS_ITS | Encounter Summary ---
Author Organization [facility] Address [address] [place] [address] Care Team Providers Care Nursery Technician Name Role Phone Celestino Alas MD Primary Care Provider [phone] Encounter Details Date Type Department Care Team (Latest Contact Info) Description 08/23/2001 Outpatient Historical [facility] Cardiology- [place] [address] [place] [address] Cal Singh MD NO ADDRESS ON FILE Benign hypertension (Primary Dx) Social History Tobacco Use Types Packs/Day Years Used Date Smoking Tobacco: Never Assessed Sex and Gender Information Value Date Recorded Sex Assigned at Not on file Legal Sex Male 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 Gender Identity Not on file Sexual Orientation Not on file documented as of this encounter Plan of Treatment Not on file documented as of this encounter Visit Diagnoses Diagnosis Benign hypertension- Primary Essential hypertension, benign documented in this encounter Additional Health Concerns Infection Onset Date Last Indicated Resolved Time COVID-19 04/10/2020 04/10/2020 05/10/2020 8:09 PM CDT documented as of this encounter Care Teams Nursery Technician Relationship Specialty Start Date End Date Celestino Alas MD [address] [place] [address] PCP - General Family Practice 11/30/16 documented as of this encounter
--- OUTSIDE RECORDS SUMMARY | 2025-05-23 08:19 | XMS_ITS | Encounter Summary ---
Author Organization [facility] Address [address] [place] [address] Care Team Providers Care Assistant Sales Director Name Role Phone Celestino Alas MD Primary Care Provider [phone] Encounter Details Date Type Department Care Team (Late Contact Info) Description 04/10/2025 Results Follow-Up [facility] [address] [address] Radha Tejeda FNP [address] [address] PSA, LIPID PANEL, CBC WITH DIFFERENTIAL, Additional followed-up results: 2 Social History Tobacco Use Types Packs/Day Years Used Date Smoking Tobacco: Former Cigarettes Q uit: 11/13/1986 Smokeless Tobacco: Never Alcohol Use Standard Drinks/Week Comments No 0 (1 standard drink = 0.6 oz pur e alcohol) Sex and Gender Information Value Date Recorded Sex Assigned at Male 06/21/2023 2:10 PM CDT Legal 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 Gender Identity Male 06/21/2023 2:10 PM CDT Sexual Orientation Straight 06/21/2023 2: 10 PM CDT documented as of this encounter Plan of Treatment Upcoming Encounters Date Type Department Care Team (Late Contact Info) Description 2025 4:20 PM CDT Office Visit [facility] [address] [address] Celestino lAas MD [address] [address] documented as of this encounter Visit Diagnoses Not on filedocumented in this encounter Care Teams Assistant Sales Director Relationship Specialty Start Date End Date Celestino Alas MD [address] [address] PCP - General Family Practice 11/30/16 documented as of this encounter
--- OUTSIDE RECORDS SUMMARY | 2025-05-23 08:19 | XMS_ITS | Encounter Summary ---
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
--- OUTSIDE RECORDS SUMMARY | 2025-05-23 08:19 | XMS_ITS | Encounter Summary ---
Author Organization [facility] Address [address] [place] [address] Care Team Providers Care Jet Wiper Name Role Phone Celestino Alas MD Primary Care Provider [phone] [phone] Encounter Details Date Type Department Care Team (Latest Contact Info) Description 10/16/2001 Outpatient Historical [facility] Celestino Hansen MD [address] [place] [id number] HYPERTENSION NOS (Primary Dx) Social History Tobacco Use Types Packs/Day Years Used Date Smoking Tobacco: Never Assessed Sex and Gender Information Value Date Recorded Sex Assigned at Not on file 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 Gender Identity Not on file Sexual Orientation Not on file documented as of this encounter Plan of Treatment Not on file documented as of this encounter Visit Diagnoses Diagnosis Unspecified essential hypertension- Primary documented in this encounter Additional Health Concerns Infection Onset Date Last Indicated Resolved Time COVID-19 04/10/2020 04/10/2020 05/10/2020 8:09 PM CDT documented as of this encounter Care Teams Jet Wiper Relationship Specialty Start Date End Date Celestino Alas MD [address] [place] [address] PCP - General Family Practice 11/30/16 documented as of this encounter
--- OUTSIDE RECORDS SUMMARY | 2025-05-23 08:19 | XMS_ITS | Encounter Summary ---
Author Organization [employer] [facility] Address [address] [place] [address] Care Team Providers Care Dianeticist Name Role Phone Celestino Alas MD Primary Care Provider +1 [phone] Encounter Details Date Type Department Care Team (Latest Contact Info) Description 10/30/2000 Outpatient Historical HIS [facility] David Fontaine NO ADDRESS ON FILE Local superficial swellng (Primary Dx); Family history of diabetes mellitus Social History Tobacco Use Types Packs/Day Years Used Date Smoking Tobacco: Never Assessed Sex and Gender Information Value Date Recorded Sex Assigned at Not on file 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 Gender Identity Not on file Sexual Orientation Not on file documented as of this encounter Plan of Treatment Not on file documented as of this encounter Visit Diagnoses Diagnosis Local superficial swellng- Primary Localized superficial swelling, mass, or lump Family history of diabetes mellitus documented in this encounter Additional Health Concerns Infection Onset Date Last Indicated Resolved Time COVID-19 04/10/2020 04/10/2020 05/10/2020 8:09 PM CDT documented as of this encounter Care Teams Dianeticist Relationship Specialty Start Date End Date Celestino Alas MD [address] [place] [address] PCP - General Family Practice 11/30/16 documented as of this encounter
--- OUTSIDE RECORDS SUMMARY | 2025-05-23 08:19 | XMS_ITS | Encounter Summary ---
Author Organization [facility] Address [address] [place] [address] Care Team Providers Care Harbor Pilot Name Role Phone Celestino Alas MD Primary Care Provider [phone] [phone] Encounter Details Date Type Department Care Team (Latest Contact Info) Description 12/26/2001 Outpatient Historical [facility] Masoud Martinez MD [address] [place] [address] ACUTE URI NOS (Primary Dx); ACUTE PHARYNGITIS Social History Tobacco Use Types Packs/Day Years Used Date Smoking Tobacco: Never Assessed Sex and Gender Information Value Date Recorded Sex Assigned at Not on file 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 Gender Identity Not on file Sexual Orientation Not on file documented as of this encounter Plan of Treatment Not on file documented as of this encounter Visit Diagnoses Diagnosis Acute upper respiratory infections of unspecified site- Primary Acute pharyngitis documented in this encounter Additional Health Concerns Infection Onset Date Last Indicated Resolved Time COVID-19 04/10/2020 04/10/2020 05/10/2020 8:09 PM CDT documented as of this encounter Care Teams Harbor Pilot Relationship Specialty Start Date End Date Celestino Alas MD [address] [facility] [address] [place] [address] PCP - General Family Practice 11/30/16 documented as of this encounter
--- OUTSIDE RECORDS SUMMARY | 2025-05-23 08:19 | XMS_ITS | Encounter Summary ---
Author Organization [facility] Address [address] [place] [address] Care Team Providers Care Shearer Screen Measurer And Trimmer Name Role Phone Celestino Alas MD Primary Care Provider [phone] [phone] Encounter Details Date Type Department Care Team (Late st Contact Info) Description 12/11/2000 Outpatient Historical HIS [facility] Santos Ochoa MD [address] [address] Follow-up examination, following unspecified surgery (Primary Dx) Social History Tobacco Use Types Packs/Day Years Used Date Smoking Tobacco: Never Assessed Sex and Gender Information Value Date Recorded Sex Assigned at Not on file 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 Gender Identity Not on file Sexual Orientation Not on file documented as of this encounter Plan of Treatment Not on file documented as of this encounter Visit Diagnoses Diagnosis Follow-up examination, following unspecified surgery- Primary documented in this encounter Additional Health Concerns Infection Onset Date Last Indicated Resolved Time COVID-19 04/10/2020 04/10/2020 05/10/2020 8:09 PM CDT documented as of this encounter Care Teams Shearer Screen Measurer And Trimmer Relationship Specialty Start Date End Date Celestino Alas MD [address] [address] [place] [address] PCP - General Family Practice 11/30/16 documented as of this encounter
--- OUTSIDE RECORDS SUMMARY | 2025-05-23 08:19 | XMS_ITS | Encounter Summary ---
Author Organization [facility] Address [address] [place] [address] Care Team Providers Care Mountain Or Glacier Guide Name Role Phone Celestino Alas MD Primary Care Provider [phone] [phone] Encounter Details Date Type Department Care Team (Latest Contact Info) Description 06/21/2001 Outpatient Historical [facility] Celestino Hansen MD [address] [place] [address] Abdominal pain, unspecified site (Primary Dx); Dyspepsia and other specified disorders of function of stomach Social History Tobacco Use Types Packs/Day Years Used Date Smoking Tobacco: Never Assessed Sex and Gender Information Value Date Recorded Sex Assigned at Not on file 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 Gender Identity Not on file Sexual Orientation Not on file documented as of this encounter Plan of Treatment Not on file documented as of this encounter Visit Diagnoses Diagnosis Abdominal pain, unspecified site- Primary Dyspepsia and other specified disorders of function of stomach documented in this encounter Additional Health Concerns Infection Onset Date Last Indicated Resolved Time COVID-19 04/10/2020 04/10/2020 05/10/2020 8:09 PM CDT documented as of this encounter Care Teams Mountain Or Glacier Guide Relationship Specialty Start Date End Date Celestino Alas MD [address] [facility] [address] [place] [address] PCP - General Family Practice 11/30/16 documented as of this encounter
--- OUTSIDE RECORDS SUMMARY | 2025-05-23 08:19 | XMS_ITS | Encounter Summary ---
Author Organization [facility] Address [address] [place] [address] Care Team Providers Care Weapons Electrical Engineering Officer Name Role Phone Celestino Alas MD Primary Care Provider [phone] [phone] Encounter Details Date Type Department Care Team (Latest Contact Info) Description 05/23/2001 Outpatient Historical [facility] David Fontaine NO ADDRESS ON FILE Screening for lipoid disorders (Primary Dx); Encounter for long-term (current) use of other medications Social History Tobacco Use Types Packs/Day Years Used Date Smoking Tobacco: Never Assessed Sex and Gender Information Value Date Recorded Sex Assigned at Not on file 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 Gender Identity Not on file Sexual Orientation Not on file documented as of this encounter Plan of Treatment Not on file documented as of this encounter Visit Diagnoses Diagnosis Screening for lipoid disorders- Primary Encounter for long-term (current) use of other medications documented in this encounter Additional Health Concerns Infection Onset Date Last Indicated Resolved Time COVID-19 04/10/2020 04/10/2020 05/10/2020 8:09 PM CDT documented as of this encounter Care Teams Weapons Electrical Engineering Officer Relationship Specialty Start Date End Date Celestino Alas MD [address] [place] [address] PCP - General Family Practice 11/30/16 documented as of this encounter
--- OUTSIDE RECORDS SUMMARY | 2025-05-23 08:19 | XMS_ITS | Encounter Summary ---
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 Gender Identity Not on file Sexual Orientation Not on file documented as of this encounter Plan of Treatment Not on file documented as of this encounter Visit Diagnoses Not on filedocumented in this encounter Additional Health Concerns Infection Onset Date Last Indicated Resolved Time COVID-19 04/10/2020 04/10/2020 05/10/2020 8:09 PM CDT documented as of this encounter Care Teams Pharmacology Teacher Relationship Specialty Start Date End Date Celestino Alas MD [address] [facility] [address] [place] [address] PCP - General Family Practice 11/30/16 documented as of this encounter
--- OUTSIDE RECORDS SUMMARY | 2025-05-23 08:19 | XMS_ITS | Encounter Summary ---
Author Organization [facility] Address [address] [place] [address] Care Team Providers Care Ice Seller Name Role Phone Celestino Alas MD Primary Care Provider [phone] [phone] Encounter Details Date Type Department Care Team (Latest Contact Info) Description 03/07/2001 Outpatient Historical HIS [facility] David Fontaine NO ADDRESS ON FILE Unspecified essential hypertension (Primary Dx) Social History Tobacco Use Types Packs/Day Years Used Date Smoking Tobacco: Never Assessed Sex and Gender Information Value Date Recorded Sex Assigned at Not on file 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 Gender Identity Not on file Sexual Orientation Not on file documented as of this encounter Plan of Treatment Not on file documented as of this encounter Visit Diagnoses Diagnosis Unspecified essential hypertension- Primary documented in this encounter Additional Health Concerns Infection Onset Date Last Indicated Resolved Time COVID-19 04/10/2020 04/10/2020 05/10/2020 8:09 PM CDT documented as of this encounter Care Teams Ice Seller Relationship Specialty Start Date End Date Celestino Alas MD [address] [facility] [address] [place] [address] PCP - General Family Practice 11/30/16 documented as of this encounter
--- OUTSIDE RECORDS SUMMARY | 2025-05-23 08:19 | XMS_ITS | Encounter Summary ---
Author Organization [facility] Address [address] [place] [address] Care Team Providers Care Installation Manager Name Role Phone Celestino Alas MD Primary Care Provider [phone] [phone] Encounter Details Date Type Department Care Team (Latest Contact Info) Description 08/08/2001 Outpatient Historical [facility] Horace Kerns Jr., MD [address] [place] [phone] Unspecified essential hypertension (Primary Dx); Heart disease, unspecified Social History Tobacco Use Types Packs/Day Years Used Date Smoking Tobacco: Never Assessed Sex and Gender Information Value Date Recorded Sex Assigned at Not on file 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
--- OUTSIDE RECORDS SUMMARY | 2025-05-23 08:19 | XMS_ITS | Encounter Summary ---
Author Organization [facility] Address [address] [place] [address] Care Team Providers Care Operator And Truck Driver Name Role Phone Celestino Alas MD Primary Care Provider [phone] [phone] Encounter Details Date Type Department Care Team (Latest Contact Info) Description 11/15/2000 Outpatient Historical HIS [facility] David Fontaine NO ADDRESS ON FILE Acute sinusitis, unspecified (Primary Dx); Swelling, mass, or lump in head and neck Social History Tobacco Use Types Packs/Day Years Used Date Smoking Tobacco: Never Assessed Sex and Gender Information Value Date Recorded Sex Assigned at Not on file 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 Gender Identity Not on file Sexual Orientation Not on file documented as of this encounter Plan of Treatment Not on file documented as of this encounter Visit Diagnoses Diagnosis Acute sinusitis, unspecified- Primary Swelling, mass, or lump in head and neck documented in this encounter Additional Health Concerns Infection Onset Date Last Indicated Resolved Time COVID-19 04/10/2020 04/10/2020 05/10/2020 8:09 PM CDT documented as of this encounter Care Teams Operator And Truck Driver Relationship Specialty Start Date End Date Celestino Alas MD [address] [place] [address] PCP - General Family Practice 11/30/16 documented as of this encounter
[2025-05-23 08:34] VITALS: BP 141/84; PULSE 60; RESP 16; TEMP 36.5; O2SAT 96; BMI 35.9
[2025-05-23 09:02] LABS: Hematocrit 46.7 % (37-53); Hemoglobin 15.00 g/dL (11.27-16.99); Mean Corpuscular HGB Conc 32.1 g/dL (30-55); Mean Corpuscular Hemoglobin 27.6 pg (27-33); Mean Corpuscular Volume 85.8 fl (82-101); Nucleated Red Blood Cells % 0 %; Platelet Count 203 10^3/cmm (157-399); Red Blood Count 5.44 10^6/uL (3.85-5.65); White Blood Count 11.40 10^3/uL (3.29-11.43)
[2025-05-23 09:03] VITALS: BP 157/90; PULSE 70; RESP 18; O2SAT 92
[2025-05-23 09:08] LABS: Glucose Urine UA Negative (Normal); Nitrate Urine Negative (Negative); Specific Gravity, Urine 1.026 (1.005-1.030)
--- NOTE | 2025-05-23 09:08 | CT_ITS ---
WS: [id number] Exam: CT kidney stone [id number] Date/Time of Exam: 05/23/2025 9:08 AM Reason For Exam: L flank/abdomen pain, N/V DLP: 1172.[address] scans at [facility] use at least one of these dose optimization techniques: automated exposure control; mA and/or kV adjustment per patient size (includes targeted exams where dose is matched to clinical indication); or iterative reconstruction. A 3.5 mm minimally obstructing stone is seen at the LEFT UVJ. No other sign of urinary tract stone or obstruction. Lower lung zones are clear. The liver, spleen, stomach, and gallbladder appear normal. The pancreas is unremarkable. No renal mass or cyst. Normal adrenal glands. The abdominal aorta is normal in caliber. No lymphadenopathy or free air. Small bowel loops are not dilated. Normal appendix visualized. No significant large bowel abnormality noted. No mass or adenopathy in the pelvis. No significant abdominal wall defect. No destructive bone lesions. Spondylosis of the visualized thoracic and lumbar spine. CT/CT kidney stone [id number] IMPRESSION: 1. 3.5 mm minimally obstructing stone at the LEFT UVJ. No other sign of urinary tract stone or obstruction. 2. No other significant finding in the abdomen or pelvis.
--- NOTE | 2025-05-23 09:09 | W.ED.ABDPA2 ---
HPI - Abdominal Pain General: Chief Complaint: Abdominal Pain Stated Complaint: pain in lower back/abdominal area Time Seen by Provider: 05/23/25 08:17 Source: patient Mode of arrival: ambulatory Limitations: no limitations History of Present Illness: Patient is a nice 54-year-old male presents to ED today with a complaint of left-sided flank pain radiating around to the left side of his abdomen and testicle. He states he noticed symptoms after he awoke this morning and they have progressively worsened. He appears significantly uncomfortable at time of arrival. He has not noticed any swelling or redness to the testicle. He feels like pain starts near his left flank and then radiates around. He is having some degree of urinary hesitancy. No history of urolithiasis. He has felt very nauseous and has had an episode of vomiting. No fevers. No rash. MD elicited complaint: abdominal pain and flank pain Pertinent past history: none Onset (ago): hour(s) Pain Consistency: constant Location: L flank Severity: severe Quality: stabbing and sharp Radiation: other (L abdomen, L testicle) Migration to: no migration Exacerbating factors: nothing Relieving factors: nothing Associated Symptoms: Reports nausea and vomiting; Denies change in bowel habits, chills, constipation, diarrhea, dysuria and fever(s) Related Data Home Medications ?Medication ?Instructions ?Recorded ?Confirmed atenolol 100 mg tablet (Tenormin) 100 mg PO DAILY 12/18/19 10/29/24 captopril 50 mg tablet 50 mg PO DAILY 12/18/19 10/29/24 terazosin 10 mg capsule 10 mg PO DAILY 12/18/19 10/29/24 aspirin 81 mg tablet,delayed 81 mg PO BID 10/29/24 10/29/24 release (Edgar Low Dose Aspirin) glipizide 10 mg tablet, extended 10 mg PO QAM 10/29/24 10/29/24 release 24 hr metformin 1,000 mg tablet 1,000 mg PO BIDWM 10/29/24 10/29/24 omeprazole 20 mg capsule,delayed 20 mg PO DAILY 10/29/24 10/29/24 release semaglutide 2 mg/dose (8 mg/3 mL) See Rx Instructions .Route .COMPLEX 10/29/24 10/29/24 subcutaneous pen injector (Ozempic) Previous Rx's ?Medication ?Instructions ?Recorded custom orthotics L3020 #1 ea 09/12/23 diclofenac sodium 75 mg 75 mg PO Q12H PRN pain #20 tabs 10/29/24 tablet,delayed release methylprednisolone 4 mg tablets in See Rx Instructions PO .COMPLEX 10/29/24 a dose pack (Medrol ([place]orge)) #21 ea tizanidine 4 mg tablet 4 mg PO Q6H PRN muscle spasticity 10/29/24 #20 tabs hydrocodone 5 mg-acetaminophen 325 1 tab PO Q6H PRN pain #20 tabs 05/23/25 mg tablet ondansetron 4 mg disintegrating 4 mg PO Q8H PRN nausea and 05/23/25 tablet vomiting #14 tabs tamsulosin 0.4 mg capsule (Flomax) 0.4 mg PO DAILY #10 caps 05/23/25 Allergies Allergy/AdvReac Type Severity Reaction Status Date / Time No Known Allergies Allergy Verified 09/12/23 15:08 Review of Systems Const: Denies: fever(s), chills, body aches, fatigue or malaise Card: Denies: chest pain Resp: Denies: dyspnea GI: Reports: abdominal pain, nausea and vomiting; Denies: diarrhea, constipation or change in bowel habits : Reports: flank pain, urinary urgency and testicular pain; Denies: difficulty urinating, dysuria, urinary frequency or urinary hesitancy Musc: Reports: back pain (L flank); Denies: neck pain, extremity pain, extremity swelling, joint pain, joint swelling or joint redness Skin/Breast: Denies: rash Neuro: Denies: headache(s), numbness in extremities, weakness in extremities, sensory changes or dizziness PFS ED PFSH: Medical History (Updated 05/23/25 @ 09:55 by SIMRAN Livingston) Essential hypertension Diabetes Family History Other Cancer Diabetes Hypertension Social History Smoking and tobacco/nicotine status: former use of tobacco/nicotine Course Vital Signs: Vital signs: Vital Signs Temperature 97.7 F 05/23/25 08:34 Pulse Rate 60 05/23/25 09:34 Respiratory Rate 16 05/23/25 09:34 Blood Pressure 139/75 07/11/25 09:34 Pulse Oximetry 88 L 05/23/25 09:34 Oxygen Delivery Me thod Room Air 05/23/25 09:34 MDM - Abdominal Pain Medical Decision Making Patient is a 3.5MM left UVJ calculus. His pain was controllable here. He feels comfortable going home. Will place on pain/nausea meds and Flomax and will get him set up with urology. Will give him a strainer to go home with. Return to ED precautions discussed. Medical Records I reviewed the patient's medical records. Lab Data I reviewed the patient's lab results. 05/23/25 08:56 05/23/25 08:56 Labs/Radiology: Radiology Impressions Abdomen/Pelvis CT 05/23/25 09:08 IMPRESSION: 1. 3.5 mm minimally obstructing stone at the LEFT UVJ. No other sign of urinary tract stone or obstruction. 2. No other significant finding in the abdomen or pelvis. Laboratory Results WBC 11.40 10^3/uL (3.29-11.43) 05/23/25 08:56 RBC 5.44 10^6/uL (3.85-5.65) 05/23/25 08:56 Hgb 15.00 g/dL (11.27-16.99) 05/23/25 08:56 Hct 46.7 % (37-53) 05/23/25 08:56 MCV 85.8 fl (82-101) 05/23/25 08:56 MCH 27.6 pg (27-33) 05/23/25 08:56 MCHC 32.1 g/dL (30-55) 05/23/25 08:56 RDW 13.4 % (12.1-15.1) 05/23/25 08:56 Plt Count 203 10^3/cmm (157-399) 05/23/25 08:56 MPV 10.5 fL (7.4-10.4) H 05/23/25 08:56 Neut % (Auto) 52.0 % 05/23/25 08:56 Lymph % (Auto) 35.1 % 05/23/25 08:56 [place] % (Auto) 8.2 % 05/23/25 08:56 Eos % (Auto) 3.9 % 05/23/25 08:56 Baso % (Auto) 0.5 % 05/23/25 08:56 Neut # (Auto) 5.94 10^3/uL (1.8-7.7) 05/23/25 08:56 Lymph # (Auto) 4.0 10^3/uL (0.8-4.8) 05/23/25 08:56 [place] # (Auto) 0.9 10^3/uL (0.2-0.9) 05/23/25 08:56 Eos # (Auto) 0.4 10^3/uL (0.0-0.8) 05/23/25 08:56 Baso # (Auto) 0.1 10^3/uL (0.0-0.1) 05/23/25 08:56 Nucleated RBC % (auto) 0 % 05/23/25 08:56 Nucleated RBCs # 0.0 /100WBC 05/23/25 08:56 Sodium 142 mmol/L (136-145) 05/23/25 08:56 Potassium 3.8 mmol/L (3.5-5.1) 05/23/25 08:56 Chloride 105 mmol/L (98-107) 05/23/25 08:56 Carbon Dioxide 21 mmol/L (22-29) L 05/23/25 08:56 Anion Gap 19.8 (5-19) H 05/23/25 08:56 BUN 19 mg/dL (6-20) 05/23/25 08:56 Creatinine 0.9 mg/dL (0.7-1.2) 05/23/25 08:56 GFR Calculation 87.3 mL/min (90-130) L 05/23/25 08:56 Glucose 262 mg/dL (65-115) H 05/23/25 08:56 Calculated Osmolality 305 mOsm/kg (285-295) H 05/23/25 08:56 Calcium 9.4 mg/dL (8.5-10.5) 05/23/25 08:56 Total Bilirubin 0.4 mg/dL (0.15-1.2) 05/23/25 08:56 AST 31 U/L (0-40) 05/23/25 08:56 ALT 52 U/L (0-41) H 05/23/25 08:56 Alkaline Phosphatase 97 U/L (40-130) 05/23/25 08:56 Total Protein 7.4 g/dL (6.6-8.7) 05/23/25 08:56 Albumin 4.2 g/dL (3.5-5.2) 05/23/25 08:56 Globulin 3.2 g/dL (1.3-4.6) 05/23/25 08:56 Lipase 72 U/L (13-60) H 05/23/25 08:56 Urine Color [place] (Yellow) A 05/23/25 09:01 Urine Appearance Cloudy (CLEAR) A 05/23/25 09:01 Urine pH 5.5 (5-7) 05/23/25 09:01 Ur Specific [place] 1.026 (1.005-1.030) 05/23/25 09:01 Urine Protein Trace (Negative) A 05/23/25 09:01 Urine Glucose (UA) Negative (Normal) 05/23/25 09:01 Urine Ketones Trace (Negative) 05/23/25 09:01 Urine Blood 3+ (Negative) A 05/23/25 09:01 Urine Nitrate Negative (Negative) 05/23/25 09:01 Urine Bilirubin Negative (Negative) 05/23/25 09:01 Urine Urobilinogen 1.0 mg/dL (Negative) 05/23/25 09:01 Ur Leukocyte Esterase Negative (Negative) 05/23/25 09:01 Urine RBC 21-50 /hpf (0-2) H 05/23/25 09:01 Urine WBC 0-5 /hpf (0-5) 05/23/25 09:01 Ur Squamous Epith Cells 0-5 /hpf (0-5) 05/23/25 09:01 Amorphous Sediment Not Reportable 05/23/25 09:01 Urine Bacteria None seen /hpf (NONE) 05/23/25 09:01 Hyaline Casts 0-4 /lpf H 05/23/25 09:01 All radiology interpretation(s) finalized by discharge Discharge Plan Discharge Patient Disposition: Home Clinical Impression: Calculus of left ureter Condition: Stable Prescriptions: New hydrocodone-acetaminophen 5-325 mg tablet 1 tab PO Q6H PRN (Reason: pain) Qty: 20 0RF tamsulosin [Flomax] 0.4 mg capsule 0.4 mg PO DAILY Qty: 10 0RF ondansetron 4 mg tablet,disintegrating 4 mg PO Q8H PRN (Reason: nausea and vomiting) Qty: 14 0RF No Action (DME) custom orthotics L3020 See Rx Instructions .Route .MEDSUPPLY Qty: 1 0RF Rx Instructions: As directed to the Joss[facility] [place] atenolol [Tenormin] 100 mg tablet 100 mg PO DAILY captopril 50 mg tablet 50 mg PO DAILY terazosin 10 mg capsule 10 mg PO DAILY glipizide 10 mg tablet extended release 24hr 10 mg PO QAM aspirin [Edgar Low Dose Aspirin] 81 mg Tablet,Delayed Release (Dr/Ec) 81 mg PO BID metformin 1,000 mg tablet 1,000 mg PO BIDWM omeprazole 20 mg capsule,delayed release(DR/EC) 20 mg PO DAILY Ozempic 2 mg/dose (8 mg/3 mL) pen injector See Rx Instructions .ROUTE .COMPLEX Rx Instructions: INJECT 2 MG BY SUBCUTANEOUS INJECTION EVERY 7 DAYS. DOSE INCREASE. REPLACES PRIOR RX tizanidine 4 mg tablet 4 mg PO Q6H PRN (Reason: muscle spasticity) Qty: 20 0RF Rx Instructions: do not exceed 3 doses per 24 hrs diclofenac sodium 75 mg tablet,delayed release (DR/EC) 75 mg PO Q12H PRN (Reason: pain) Qty: 20 0RF methylprednisolone [Medrol (Gorge)] 4 mg tablets,dose pack See Rx Instructions .ROUTE .COMPLEX Qty: 21 0RF Rx Instructions: orally per package directions Discharge Orders: Discharge ED (Routine); Ordered 05/23/25 Ordered By: Mana Garrett Patient Instructions: Ureteral Stones (ED), Opioid Safety, Pain Management, Patient Portal & Lenny Instructions Activity Restrictions/Additional Instructions: As we discussed, you may use the pain and nausea medications as needed. Push fluids is much as possible for frequent urination to try to help pass the stone. You may bring any passed stones with you to your follow-up urology appointment. You should have been sent home with a urine strainer to help with this. Case management should contact you next week to help set you up with this follow-up appointment. You may return to the emergency department at anytime for worsening or uncontrollable pain, inability to tolerate medications, fevers, or any other concerns you may have. Print Language: Mongolian Coding Level of Care Code ED Load Blocker for Nuris Kraft
[2025-05-23 09:13] LABS: Add Urine Microscopic? YES
[2025-05-23 09:19] LABS: Alanine Aminotransferase 52 U/L (0-41); Albumin Level 4.2 g/dL (3.5-5.2); Alkaline Phosphatase 97 U/L (40-130); Anion Gap 19.8 (5-19); Aspartate Amino Transferase 31 U/L (0-40); Blood Urea Nitrogen 19 mg/dL (6-20); Calcium 9.4 mg/dL (8.5-10.5); Carbon Dioxide 21 mmol/L (22-29); Chloride 105 mmol/L (98-107); Creatinine Clr Calc Pharmacy 115.5767; Globulin 3.2 g/dL (1.3-4.6); Glucose 262 mg/dL (65-115); Lipase 72 U/L (13-60); Osmolality Calculated 305 mOsm/kg (285-295); Potassium 3.8 mmol/L (3.5-5.1); Sodium 142 mmol/L (136-145); Total Protein 7.4 g/dL (6.6-8.7)
[2025-05-23] MEDS: ondansetron 2 mg/ML SDV 2 mL 4 MG IVP (09:20)
[2025-05-23] MEDS: morphine 4 mg/mL SDV 1 mL IVP (09:20)
[2025-05-23 09:34] VITALS: BP 139/75; PULSE 60; RESP 16; O2SAT 88
--- NOTE | 2025-05-23 09:35 | PC.NURSE ---
Pt O2 sat dropping to 88% on room air after morphine, placed pt on 2L NC
[2025-05-23 10:02] VITALS: BP 126/83; PULSE 62; RESP 16; O2SAT 94
== END 2025-05-23 10:10 | disposition home or self-care (01) ==
PROVIDERS: Family Medicine; Emergency Provider Physician Assistant
DX: N20.1 Calculus of ureter (principal); I10 Essential (primary) hypertension; E11.9 Type 2 diabetes mellitus without complications; Z79.899 Other long term (current) drug therapy; Z79.84 Long term (current) use of oral hypoglycemic drugs; Z79.85 Long-term (current) use of injectable non-insulin antidiabetic drugs; Z79.82 Long term (current) use of aspirin; Z87.891 Personal history of nicotine dependence
CPT/HCPCS: 36415; 74176; 80053; 81001; 83690; 85025; 87086; 96361; 96374; 96375; 99285; J1885; J2270; J2405; J7030